=== PATIENT | female | born 1995 | race Hispanic/Latino ===

== ENCOUNTER 2021-06-28 12:18 | Day surgery (SDC) | payer MEDICAID ==
[2021-06-28 13:26] VITALS: BMI 29.8
[2021-06-28] MEDS ORDERED: hydrALAZINE 20 MG/ML VIAL SLOW IVP PRN (13:44)
[2021-06-28 14:23] LABS: #Eosinphils 0.1 10x3/uL (0.0-0.5); #Monocytes 0.4 10x3/uL (0.0-1.1); #Neutrophils 4.5 10x3/uL (1.5-8.4); %Basophils 0.3 % (0.0-2.0); %Eosinophils 0.8 % (0.0-6.0); %Neutrophils 62.5 % (40.0-75.0); Hemoglobin 12.9 g/dL (12.0-15.5); Mean Corpuscular HGB CONC 33.5 g/dL (32.0-36.0); Mean Corpuscular Hemoglobin 32.4 pg (27.0-33.0); Mean Corpuscular Volume 96.7 fl (81.6-98.3); Mean Platelet Volume 11.5 fl (7.4-10.4); Platelet Count 200 10x3/uL (150-450); RBC Distribution Width 13.1 % (11.5-14.5); Red Blood Cell (RBC) Count 3.98 10x6/uL (3.90-5.03); White Blood Cell (WBC) Count 7.2 10x3/uL (3.5-10.5)
[2021-06-28 14:41] LABS: ALT (SGPT) 10 U/L (8-55); AST (SGOT) 16 U/L (5-34); Albumin 3.4 g/dL (3.5-5.0); Alkaline Phosphatase 103 U/L (40-110); Anion Gap 15 mmol/L (10-20); BUN (Urea Nitrogen) 9 mg/dL (7.0-18.7); Bilirubin, Total 0.3 mg/dL (0.2-1.2); Calc. Creatinine Clearance 184 mL/min (70-130); Calcium 9.1 mg/dL (7.8-10.44); Carbon Dioxide 20 mmol/L (22-29); Chloride 106 mmol/L (98-107); Globulin 3.4 g/dL (2.4-3.5); Glucose 78 mg/dL (70-105); Potassium 3.8 mmol/L (3.5-5.1); Protein, Total 6.8 g/dL (6.0-8.3); Sodium 137 mmol/L (136-145)
[2021-06-28 14:54] LABS: Creatinine, Urine 72.5 mg/dL (47-110)
== END 2021-06-28 16:30 | disposition home or self-care (01) ==
LOC: CSHLD/OP 12:18
PROVIDERS: ATTEND Student in an Organized Health Care Education/Training Program
DX: O13.3 Gestational [pregnancy-induced] hypertension without significant proteinuria, third trimester (principal); O24.415 Gestational diabetes mellitus in pregnancy, controlled by oral hypoglycemic drugs; Z3A.35 35 weeks gestation of pregnancy; Z79.82 Long term (current) use of aspirin
CPT/HCPCS: 36415; 80053; 82570; 84156; 85025

== ENCOUNTER 2021-07-12 15:24 | Inpatient (IN) | payer MEDICAID, SELFPAY ==
[2021-07-12] MEDS ORDERED: hydrALAZINE 20 MG/ML VIAL SLOW IVP PRN ×2 (15:53→20:14)
[2021-07-12 16:22] VITALS: BMI 32.2
[2021-07-12 17:20] LABS: #Monocytes 0.5 10x3/uL (0.0-1.1); #Neutrophils 4.9 10x3/uL (1.5-8.4); %Basophils 0.1 % (0.0-2.0); %Eosinophils 0.3 % (0.0-6.0); %Lymphocytes 27.6 % (18.0-47.0); %Monocytes 6.6 % (0.0-10.0); Hemoglobin 13.4 g/dL (12.0-15.5); Mean Corpuscular HGB CONC 33.2 g/dL (32.0-36.0); Mean Corpuscular Hemoglobin 32.4 pg (27.0-33.0); Mean Corpuscular Volume 97.8 fl (81.6-98.3); Mean Platelet Volume 12.4 fl (7.4-10.4); Platelet Count 208 10x3/uL (150-450); RBC Distribution Width 12.9 % (11.5-14.5); Red Blood Cell (RBC) Count 4.13 10x6/uL (3.90-5.03); White Blood Cell (WBC) Count 7.6 10x3/uL (3.5-10.5)
[2021-07-12 17:31] LABS: ALT (SGPT) 10 U/L (8-55); AST (SGOT) 17 U/L (5-34); Albumin 3.6 g/dL (3.5-5.0); Alkaline Phosphatase 111 U/L (40-110); Anion Gap 17 mmol/L (10-20); BUN (Urea Nitrogen) 13 mg/dL (7.0-18.7); Bilirubin, Total 0.2 mg/dL (0.2-1.2); Calc. Creatinine Clearance 185 mL/min (70-130); Calcium 9.4 mg/dL (7.8-10.44); Carbon Dioxide 18 mmol/L (22-29); Chloride 108 mmol/L (98-107); Globulin 2.8 g/dL (2.4-3.5); Glucose 91 mg/dL (70-105); Potassium 4.1 mmol/L (3.5-5.1); Protein, Total 6.4 g/dL (6.0-8.3); Sodium 139 mmol/L (136-145)
[2021-07-12 18:04] LABS: SARS-CoV-2 NAA Rapid Test Not Detected (NotDetected)
[2021-07-12 19:32] LABS: Creatinine, Urine 98.55 mg/dL (47-110)
[2021-07-12] MEDS ORDERED: Butorphanol Tartrate 1 MG/ML VIAL SLOW IVP PRN (20:14)
[2021-07-12] MEDS ORDERED: Misoprostol 200 MCG TAB PR PRN (20:14)
[2021-07-12] MEDS ORDERED: Ibuprofen 800 MG TAB PO PRN (20:14)
[2021-07-12] MEDS ORDERED: Carboprost 250 MCG/ML AMP IM PRN (20:14)
[2021-07-12] MEDS ORDERED: Promethazine HCl 25 MG/ML VIAL IM PRN (20:14)
[2021-07-12] MEDS ORDERED: Diphenoxylate HCl/Atropine Tablet PO PRN (20:14)
[2021-07-12] MEDS ORDERED: Lidocaine 1% (PF) 30 ML VIAL SC PRN (20:14)
[2021-07-12] MEDS ORDERED: Acetaminophen 500 MG TAB PO PRN (20:14)
[2021-07-12] MEDS ORDERED: NS w/ Oxytocin 30 units 500 ML IV SCH ×2 (20:30)
[2021-07-12] MEDS: Misoprostol 100 MCG TAB VAG SCH (20:54)
[2021-07-12] MEDS: Lactated Ringer's 1,000 ML IV SCH (20:54)
[2021-07-12 21:27] LABS: Hep B Surf Ag Non-Reactive S/CO (NonReactive); Syphilis Antibody Nonreactive (Nonreactive); Syphilis Antibody Index 0.05 S/CO (<1.00 Non-Reactive)
[2021-07-12 21:32] LABS: HBSAg Index 0.17 S/CO (0-0.99)
[2021-07-13] MEDS ORDERED: Calcium Gluc 4.6 MEQ/10 ML (100 MG/ML) SLOW IVP PRN (01:04)
[2021-07-13] MEDS: Ondansetron PF 4 MG/2 ML Vial IVP PRN ×2 (01:04→09:56)
[2021-07-13] MEDS ORDERED: Magnesium Sulfate 20 gm/500 ml 20 GM/500 ML BAG ONE (01:09)
[2021-07-13] MEDS ORDERED: Magnesium Sulfate 20 GM/WATER 500 ML BAG IVPB SCH (01:15)
[2021-07-13] MEDS ORDERED: Magnesium Sulfate 20 gm/500 ml 20 GM/500 ML BAG IVPB SCH (01:30)
[2021-07-13] MEDS ORDERED: Fentanyl 2 mcg/Bup 0.1% Cadd 100 ML ONE ×2 (01:30→10:55)
[2021-07-13] MEDS ORDERED: PHENYLEPHRINE-NS 100 MCG/ML 10 ML SYRINGE ONE (02:11)
[2021-07-13] MEDS ORDERED: Ondansetron PF 4 MG/2 ML Vial IVP PRN (02:18)
[2021-07-13] MEDS ORDERED: Promethazine HCl 25 MG/ML VIAL IM PRN (02:18)
[2021-07-13] MEDS ORDERED: diphenhydrAMINE 50 MG/ML VIAL IVP PRN (02:18)
[2021-07-13] MEDS ORDERED: Hydrocerin (Eucerin) Cream 120 gm Jar TOP PRN (02:18)
[2021-07-13] MEDS ORDERED: Naloxone HCl 0.4 mg/ml Vial IVP PRN ×2 (02:18)
[2021-07-13] MEDS ORDERED: Lactated Ringer's 500 ML IV PRN (02:18)
[2021-07-13] MEDS ORDERED: ePHEDrine Sulfate 50 MG/10 ML VIAL SLOW IVP PRN (02:18)
[2021-07-13] MEDS ORDERED: Acetaminophen 325 MG TAB PO PRN (02:18)
[2021-07-13] MEDS ORDERED: Fentanyl 2 mcg/Bupivacaine 0.1% Cassette 100 ML EPIDURAL SCH (02:30)
[2021-07-13] MEDS ORDERED: Communication Order-Pharmacy FS SCH (02:30)
[2021-07-13 05:35] LABS: Magnesium 2.9 mg/dL (1.6-2.6)
[2021-07-13] MEDS: Lactated Ringer's 1,000 ML IV SCH ×3 (09:47→18:19)
[2021-07-13] MEDS: Misoprostol 100 MCG TAB VAG SCH ×4 (09:48→15:37)
[2021-07-13] MEDS ORDERED: Acetaminophen 500 MG TAB PO SCH (10:00)
[2021-07-13] MEDS ORDERED: Misoprostol 200 MCG TAB ONE (15:53)
[2021-07-13] MEDS ORDERED: Carboprost 250 MCG/ML AMP ONE (15:54)
[2021-07-13 17:34] LABS: Magnesium 5.1 mg/dL (1.6-2.6)
[2021-07-14] MEDS ORDERED: Magnesium Sulfate 20 gm/500 ml 20 GM/500 ML BAG ONE (07:23)
[2021-07-14] MEDS: Lactated Ringer's 1,000 ML IV SCH ×2 (07:24→17:04)
[2021-07-14] MEDS ORDERED: Magnesium Sulfate 20 gm/500 ml 20 GM/500 ML BAG IVPB SCH ×2 (11:15→16:41)
[2021-07-14] MEDS ORDERED: Furosemide 20 MG/2 ML VIAL SLOW IVP SCH (11:15)
[2021-07-14] MEDS ORDERED: hydrALAZINE 20 MG/ML VIAL SLOW IVP PRN ×2 (11:32→16:41)
[2021-07-14] MEDS ORDERED: Furosemide 40 MG/4 ML VIAL SLOW IVP SCH (12:00)
[2021-07-14] MEDS ORDERED: Lanolin Ointment 7 GM TUBE TOP PRN (16:41)
[2021-07-14] MEDS ORDERED: Calcium Gluconate 4.6 MEQ in Sodium Chloride 0.9% 100 ML IVPB PRN (16:41)
[2021-07-14] MEDS ORDERED: Milk Of Magnesia 30 ML UDCUP PO PRN (16:41)
[2021-07-14] MEDS ORDERED: Measles/Mumps/Rubella 10 MCG/0.5 ML VIAL SC ONE (16:41)
[2021-07-14] MEDS ORDERED: Boostrix 0.5 ML (Tdap) VIAL IM ONE (16:41)
[2021-07-14] MEDS ORDERED: Bisacodyl 10 MG SUPP PR PRN (16:41)
[2021-07-14] MEDS ORDERED: Ferrous Sulfate 325 MG TAB PO SCH (16:41)
[2021-07-14] MEDS ORDERED: Ibuprofen 800 MG TAB PO SCH (16:45)
[2021-07-14] MEDS: Misoprostol 100 MCG TAB VAG SCH ×2 (17:03→17:04)
[2021-07-14] MEDS: Acetaminophen 325 MG TAB PO PRN (22:34)
[2021-07-14] MEDS: Docusate Calcium (SURFAK) 240 MG CAP PO SCH (22:35)
[2021-07-15] MEDS: Ibuprofen 800 MG TAB PO SCH ×3 (00:40→15:20)
[2021-07-15] MEDS ORDERED: Prenatal Vitamin 1 TAB PO SCH (09:00)
[2021-07-15] MEDS: Docusate Calcium (SURFAK) 240 MG CAP PO SCH (09:24)
[2021-07-15 16:42] VITALS: TEMP 97.8
[2021-07-15] MEDS: Acetaminophen 325 MG TAB PO PRN (17:02)
[2021-07-15 18:40] VITALS: BP 126/88
== END 2021-07-15 20:30 | disposition home or self-care (01) | DRG 807 ==
LOC: CSHLD 15:24 → CSHPP 07-14 16:49
PROVIDERS: ADMIT Student in an Organized Health Care Education/Training Program; ATTEND Student in an Organized Health Care Education/Training Program
PROC: 3E033VJ Introduction of Other Hormone into Peripheral Vein, Percutaneous Approach (ICD-10-PCS; 2021-07-12)
PROC: 10907ZC Drainage of Amniotic Fluid, Therapeutic from Products of Conception, Via Natural or Artificial Opening (ICD-10-PCS; 2021-07-12)
PROC: 10E0XZZ Delivery of Products of Conception, External Approach (ICD-10-PCS; principal; 2021-07-13)
PROC: 0HQ9XZZ Repair Perineum Skin, External Approach (ICD-10-PCS; 2021-07-13)
DX: O14.14 Severe pre-eclampsia complicating childbirth (principal); Z37.0 Single live birth; Z3A.37 37 weeks gestation of pregnancy; Z20.822 Contact with and (suspected) exposure to COVID-19; O24.425 Gestational diabetes mellitus in childbirth, controlled by oral hypoglycemic drugs; O13.4 Gestational [pregnancy-induced] hypertension without significant proteinuria, complicating childbirth; O76 Abnormality in fetal heart rate and rhythm complicating labor and delivery; O70.0 First degree perineal laceration during delivery; O99.43 Diseases of the circulatory system complicating the puerperium; I95.89 Other hypotension
CPT/HCPCS: 36415; 36416; 51702; 76819; 80053; 82570; 83735; 84156; 85025; 86780; 86850; 86900; 86901; 87081; 87340; 87480; 87510; 87660; J0360; J1940; J2405; J2590; J3475; J7120; U0002